=== PATIENT | female | born 2000 | race Caucasian/White ===

== ENCOUNTER 2024-11-02 12:58 | Emergency (ER) | payer MEDICAID, SELFPAY ==
[2024-11-02 13:00] VITALS: BMI 36.6
[2024-11-02 13:26] VITALS: BP 127/72; PULSE 121; RESP 22; TEMP 39.4; O2SAT 98
[2024-11-02 13:27] VITALS: BMI 34.2
--- NOTE | 2024-11-02 13:30 | XR_ITS ---
Examination: PA lateral chest 2 views TECHNIQUE: Upright PA lateral chest 2 views Date and time: November 02, 2024 1347 hours INDICATIONS: Coughing chest pain today. FINDINGS: Normal heart size. Lungs are clear. The osseous structures are intact IMPRESSION: No active disease
--- NOTE | 2024-11-02 13:30 | PD.EDRME ---
Rapid Medical Screening Exam RME Arrival date/time: 11/02/24 12:58 24-year-old female presents to the emergency department for complaints of sore throat fever lower back pain Chief Complaint: Dental/Oral/Throat Time Seen by Provider: 11/02/24 16:17 Vital signs: Vital Signs Temperature 103.0 F H 11/02/24 13:26 Pulse Rate 121 H 11/02/24 13:26 Respiratory Rate 22 H 11/02/24 13:26 Blood Pressure 127/72 11/02/24 13:26 Pulse Oximetry (%) 98 11/02/24 13:26 Oxygen Delivery Method Room Air 11/02/24 13:26
[2024-11-02 14:07] VITALS: TEMP 36.6
[2024-11-02] MEDS: ACETAMINOPHEN 500 MG TABLET PO (14:07)
[2024-11-02 14:10] LABS: Lactate (Lactic Acid) 1.2 mMol/L (0.4-2.0)
[2024-11-02 14:12] LABS: Basophils % (Auto) 0 % (0-2.5); Eosinophils % (Auto) 0 % (0-10); Hematocrit 40.7 % (36.0-46.0); Hemoglobin 14.1 g/dL (12.0-16.0); Immature Granulocytes % (Auto) 1 % (0-0); Immature Granulocytes Auto 0.07 Thou/mm3 (0.00-0.00); Lymphocytes % (Auto) 7 % (10-50); Mean Corpuscular HGB Conc 34.6 g/dl (31.0-37.0); Mean Corpuscular Hemoglobin 29.9 pg (25.0-35.0); Mean Corpuscular Volume 86 fL (80-100); Monocytes % (Auto) 7 % (0-12); Neutrophils # (Auto) 12.5 Thou/mm3 (1.8-7.7); Neutrophils % (Auto) 86 % (37-80); Nucleated Red Blood Cell % 0 /100 WBC (0); Platelet Count 261 Thou/mm3 (140-440); RDW Standard Deviation 39.1 fL (36.4-46.3); Red Blood Count 4.71 Miln/mm3 (4.00-5.20); White Blood Count 14.6 Thou/mm3 (3.6-11.0)
[2024-11-02 14:41] LABS: Strep A Rapid Negative (Negative)
--- NOTE | 2024-11-02 14:46 | PC.NURSE ---
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
[2024-11-02 14:47] LABS: Alanine Aminotransferase 37 U/L (10-49); Albumin, Serum 4.5 gm/dL (3.5-5.0); Albumin/Globulin Ratio 1.7 (1.2-2.2); Alkaline Phosphatase 69 U/L (46-116); Anion Gap 9 (7-16); Aspartate Amino Transferase 29 U/L (0-34); BUN/Creatinine Ratio 6 Ratio (12-20); Blood Urea Nitrogen < 5 mg/dL (9-23); Calcium 9.1 mg/dL (8.3-10.6); Calcium (Corrected) 9.1 mg/dL (8.5-10.1); Carbon Dioxide 25.7 mMol/L (20.0-31.0); Chloride 102 mMol/L (98-107); Creatinine (Component) 0.8 mg/dL (0.6-1.3); Estimated Creatinine Clearance 124.6 mL/min (>60); Globulin 2.7 gm/dL (2.3-3.5); Glucose 100 mg/dL (74-106); Osmolality,Calculated 271 (275-295); Potassium 3.7 mMol/L (3.4-5.1); Procalcitonin 0.06 ng/ml (0.0-0.49); Sodium 137 mMol/L (136-145); Total Protein 7.2 gm/dL (5.7-8.2); eGFR > 60 See Note
[2024-11-02 15:28] LABS: Mono Screen Negative (Negative)
[2024-11-02 15:47] LABS: Collection Type, Urine Clean Catch
--- NOTE | 2024-11-02 16:09 | PC.NURSE ---
PT IN TODAY FOR SORE THROAT SINCE SATURDAY AND THIS MORNING WOKE UP WITH BODY ACHES, FEVER, CHILLS AND COULD NOT MOVE. PT IS A/O X4 AT THIS TIME AND ANSWERING APPROPRIATELY. PT TOOK ROBATUSSIN AT HOME, AND DID NOT TAKE ANY THING FOR PAIN. PT STATES THAT NO ONE IN THE HOUSE HAS BEEN SICK.
[2024-11-02 16:15] VITALS: TEMP 37.3
[2024-11-02 16:17] VITALS: BP 111/79; PULSE 103; RESP 17; TEMP 37.3; O2SAT 98
[2024-11-02 16:25] LABS: Amorphous Crystals,Urine Present (Absent); Bilirubin,Urine Negative (Negative); Blood,Urine Trace (Negative); Clarity,Urine Turbid (Clear/Hazy); Color,Urine Yellow (Lt Yel-Yel); Glucose, Urine Negative (Negative); Ketones,Urine 1+ (Negative); Leukocyte Esterase,Urine Positive (Negative); Nitrite,Urine Negative (Negative); Protein,Urine Trace (Neg - Trace); RBC,Urine 12 /hpf (0-3); Specific Gravity,Urine 1.029 (1.001-1.035); Squamous Epithelial Cell,Urine 18 /hpf (0-5); Urobilinogen,Urine Negative mg/dL (0.0-1.0); WBC,Urine 24 /hpf (0-5)
--- NOTE | 2024-11-02 16:32 | EDNOTE_ITS ---
ED Abdominal Pain RME/HPI General Chief Complaint: Dental/Oral/Throat Stated complaint: SWOLLEN THROAT, BACK PAIN, FEVER, BODY ACHES Time seen by provider: 11/02/24 16:17 Arrival date/time: 11/02/24 12:58 Limitations: no limitations RME / HPI RME / HPI narrative: Patient is a healthy 24-year-old female who is here today with multiple complaints. She states last week she had some abdominal cramping and loose st ools which has since resolved. She denies any nausea or vomiting or urinary changes. She states over the past 3 days she has developed a sore throat and a low back ache. She has no sinus congestion, cough, or ear pain. She is self ambulating without assistance. She has no distal sensation changes or distal weakness. She has no other acute complaints. Related Data Home Medications ?Medication ?Instructions ?Recorded ?Confirmed prenat.vits,zechariah,[id number] 1 tab PO QDAY 09/10/22 09/10/22 Previous Rx's ?Medication ?Instructions ?Recorded docusate sodium 100 mg capsule 100 mg PO BID #60 caps 09/10/22 (Colace) ibuprofen 800 mg tablet 800 mg PO Q6H PRN pain #90 t abs 09/10/22 lanolin 50 % topical ointment 1 applic topical TID PRN skin 09/10/22 irritation #15 tubes Allergies Allergy/AdvReac Type Severity Reaction Status Date / Time No Known Allergies Allergy Verified 11/02/24 13:01 Review of Systems Review of Systems Systems Reviewed: All systems reviewed, normal except as documented ED Exam General Limitations: Present no limitations General appearance: Present alert and in no apparent distress Head Head exam: Present atraumatic Eye Eye exam: Present normal appearance, PERRL and EOMI ENT ENT exam: Present normal exam, normal oropharynx and mucous membranes moist Neck Neck exam: Present normal inspection, full ROM and trachea midline Chest Chest inspection: Present normal inspection and symmetric chest wall rise Respiratory Respiratory exam: Present normal lung sounds bilaterally Cardiovascular Cardiovascular exam: Present regular rate, normal rhythm and normal heart sounds Abdominal Exam Abdominal exam: Present soft and normal bowel sounds Extremities Exam Extremities exam: Present normal inspection and full ROM Back Exam Back exam: Present normal inspection and full ROM Neurological Exam Neurological exam: Present alert, oriented X3 and CN II-XII intact Psychiatric Psychiatric exam: Present normal affect and normal mood Skin Skin exam: Present warm, dry, intact and normal color Course Quality Measures none Orders Category Date Time Status XR chest 2V Stat Exams 11/02/24 13:30 Completed Blood Culture (Lab) Stat Lab 11/02/24 13:55 Received CBC Stat Lab 11/02/24 14:01 Completed Comprehensive Metabolic Panel Stat Lab 11/02/24 14:01 Completed HCG Qualitative,Urine Stat Lab 11/02/24 15:44 Completed Lactate (Lactic Acid) Stat Lab 11/02/24 14:01 Completed Hendry Screen Stat Lab 11/02/24 14:01 Completed Procalcitonin Stat Lab 11/02/24 14:01 Completed Strep A Rapid Stat Lab 11/02/24 13:36 Completed Urinalysis Stat Lab 11/02/24 15:44 Completed Urine Culture Stat Lab 11/02/24 15:44 Received Acetaminophen Tab [Tylenol ES Tab] Med 11/02/24 13:35 Discontinued 500 mg PO X1 ONE Vital Signs Vital signs: Vital Signs Temperature 103.0 F H 11/02/24 13:26 Pulse Rate 121 H 11/02/24 13:26 Respiratory Rate 22 H 11/02/24 13:26 Blood Pressure 127/72 11/02/24 13:26 Pulse Oximetry (%) 98 11/02/24 13:26 Oxygen Delivery Method Room Air 11/02/24 13:26 Abdominal Pain MDM MDM Narrative MDM Narrative:: 24-year-old female who is here today after she developed diarrhea last week that has since resolved. She now has a sore throat and a low back ache. Her work appears essentially unremarkable. She does have a mild leukocytosis at 14.6 thousand. Her liver enzymes, creatinine, are all unremarkable. Lactic acid is 1.2. UA is consistent with contaminated sample. Patient data External records reviewed:: None Clinical information provided by:: patient Social determinants that could affect healthcare access:: none Patient has the following chronic illnesses:: n/a How is presenting disease/condition affected by chronic disease/condition?: no chronic disease Evaluation data The following diagnostics were reviewed and interpreted by me:: lab results Lab and/or radiology exams considered but not ordered:: n/a Interpretation Summary: Mild leukocytosis, otherwise unremarkable Medications / Prescriptions Medications or Prescriptions considered but not ordered:: n/a Medication administrations:: Medication Administration History Discontinued Medications Acetaminophen (Acetaminophen 500 Mg Tablet) 500 mg PO X1 ONE Stop: 06/23/25 13:36 Last Admin: 11/02/24 14:07 Dose: 500 mg Documented By: CN see above Consultations Consultation(s) initiated? (list below): No Diagnosis Differential diagnosis abdominal pain: constipation, gastroenteritis and pancreatitis Most likely diagnosis given after review of the tests above:: Viral syndrome Admission Indicated Admission indicated?: not indicated Admission Request Was there a request for admission?: No Disposition Plan Disposition Plan: Discharge Discharge Attestation Discharge Attestation: The patient and all family members were given an opportunity to ask questions and understood the discharge instructions. Discharge instructions specifically effects, indications for sooner follow up or return to the emergency department, and the expected course of current diagnosis. Patient condition: Stable Discharge Plan Plan Patient Disposition: HOME (Self Care) Patient condition on transfer: Stable Prescriptions/Referrals Prescriptions/Med Rec: No Action prenat.vits,zechariah,[id number] Tablet 1 tab PO QDAY ibuprofen 800 mg tablet 800 mg PO Q6H MDD 4 PRN (Reason: pain) Qty: 90 0RF docusate sodium [Colace] 100 mg capsule 100 mg PO BID Qty: 60 0RF lanolin 50 % ointment 1 applic topical TID PRN (Reason: skin irritation) Qty: 15 0RF Referrals: Gonzalo Martin MD [Primary Care Provider] - In 1 week Problem List Clinical Impression: Acute viral syndrome Patient/Caregiver Discharge Instructions Education Materials: ED Viral Syndrome (Adult) Additional Instructions: Maintain oral hydration. Use Tylenol and ibuprofen as needed for comfort. Please follow-up with your primary clinic as needed. Return to the emergency ro om anytime for new worsening or emergent changes. Print Language: Uzbek Stand Alone Forms: Jeri Award Info., Patient Portal Info Letter
[2024-11-02 16:40] LABS: HCG Qualitative,Urine Negative
[2024-11-02 17:58] VITALS: BP 119/71; PULSE 91; RESP 19; TEMP 37.2; O2SAT 99
== END 2024-11-02 18:00 | disposition home or self-care (01) ==
PROVIDERS: Nurse Practitioner Primary Care; Emergency Provider Family Medicine; PCP Internal Medicine
DX: B34.9 Viral infection, unspecified (principal)
CPT/HCPCS: 36415; 71046; 80053; 81001; 81025; 83605; 84145; 85025; 86308; 87040; 87086; 87651; 99283; A9270